=== PATIENT | female | born 1965 | race Caucasian/White ===

== ENCOUNTER → 2017-05-13 | Outpatient (CLI) | payer OTHER ==
[~2017-05-13] MED LIST: ATENOLOL 25 MG25 M1 PO; B12INJ IM; CARDIZEM CD180 MG PO; CARDIZEM CD240 MG PO; DILTIAZEM ER120 M1 PO; LORTAB ELIXIR PO; PROPAFENONE HC225 M1 PO; VITAMIN D 5050000 I1; VITAMIN D 5050000 I1 PO; [UNRECOGNIZED DRUG - OTHER] PO
[2017-05-13 13:08] VITALS: BP 127/75
[2017-05-13 13:10] VITALS: BP 119/80
[2017-05-13 13:14] VITALS: BP 117/88
[2017-05-13 13:17] VITALS: BP 127/94
[2017-05-13 13:19] VITALS: BP 127/94
--- NOTE | 2017-05-13 15:59 | TEE ---
[facility] [address] [place] [address] TRANSESOPHAGEAL ECHOCARDIOGRAM Name: ANDREI SCOTT Room: [facility]#: [id number] Admission: 05/13/17 Attend Phys: Rickie Pugh, Discharge: Date of : 67 Date of Service: 05/13/17 1559 Report #: [id number] THIS REPORT FOR: //name// APPROVED REPORT Study performed: 05/13/2017 13:07:01 EXAM: Transesophageal Echocardiogram Patient Location: Out-Patient Status: routine BSA: 2.11 HR: 104 bpm BP: 127/75 mmHg Rhythm: Atrial Fibrillation Other Information Study Quality: Good Indications Atrial Fibrillation pre- ablation Echo Enhancing Agent Indication: Rule out Shunt Agent(s) / Amount(s) Used: Agitated Saline 10 cc Procedure After obtaining informed consent, patient underwent transesophageal echo in the [employer] [facility] [facility]. Type of Sedation : Conscious Sedation Sedation was administered by Madalyn Sandy RN. Sedation start time: 1305 Case end Time: 1322 Sedation was achieved intravenously with: Versed (4) Fentanyl (100) Transesophageal probe was inserted and advanced into esophagus without difficulty by Rickie Pugh MD, FACC. Echo enhancement indication: R/O Septal defect. Echo enhancement agent administered: Agitated Saline The DAVID was performed without complications. Throughout the procedure, the blood pressure, pulse oximetry, cardiac rhythm, and rate were monitored. The patient tolerated the procedure without adverse effects. Recovery from conscious sedation was uneventful and vital signs were stable. [place] [id number] TRANSESOPHAGEAL ECHOCARDIOGRAM Name: ANDREI SCOTT Room: [facility]#: [id number] Admission: 05/13/17 Attend Phys: Rickie Pugh, Discharge: Date of : 67 Date of Service: 05/13/17 1559 Report #: [id number] Left Ventricle The left ventricle is normal size. There is normal LV segmental wall motion. There is normal left ventricular wall thickness. Left ventricular systolic function is normal. LVEF is 55-60%. Right Ventricle The right ventricle is normal size. The right ventricular systolic function is normal. Atria Left atrium is mildly dilated. No thrombus is visualized in the left atrium or appendage. Interatrial septum is intact without evidence of ASD or PFO. The right atrium size is normal. Aortic Valve The aortic valve is normal in structure. No aortic regurgitation is present. There is no aortic valvular stenosis. Mitral Valve The mitral valve is normal in structure. Trace mitral regurgitation. No evidence of mitral valve stenosis. Tricuspid Valve The tricuspid valve is normal in structure. Trace tricuspid regurgitation. Pulmonic Valve The pulmonary valve is normal in structure. There is no pulmonic valvular regurgitation. Great Vessels The aortic root is normal in size. Pericardium There is no pericardial effusion. <Conclusion> The left ventricle is normal size. There is normal left ventricular wall thickness. Left ventricular systolic function is normal. LVEF is 55-60%. Left atrium is mildly dilated. No thrombus is visualized in the left atrium or appendage. [place] [address] TRANSESOPHAGEAL ECHOCARDIOGRAM Name: ANDREI SCOTT Room: [facility]#: [id number] Admission: 05/13/17 Attend Phys: Rickie Pugh, Discharge: Date of : 67 Date of Service: 05/13/17 1559 Report #: [id number] Trace tricuspid regurgitation. Interatrial septum is intact without evidence of ASD or PFO. <ELECTRONICALLY SIGNED> By: Rickie Pugh MD, FACC 05/13/17 1559 1559 155 Rickie Pugh MD, FACC /INF
== END ==
LOC: M.CL 11:53
DX: I48.91 Unspecified atrial fibrillation (principal)

== ENCOUNTER → 2017-12-26 | Outpatient (CLI) | payer OTHER | LOC: M.LAB 02:50 | DX: Z01.812 Encounter for preprocedural laboratory examination (principal); I48.91 Unspecified atrial fibrillation; M19.90 Unspecified osteoarthritis, unspecified site ==

== ENCOUNTER 2018-11-25 18:38 | Inpatient (IN) | payer OTHER ==
[~2018-11-25] VITALS: Ht 165.1 cm; Wt 116.1 kg
[2018-11-25] MEDS ORDERED: FLECAINIDE ACE150 MG PO (18:48)
[2018-11-25] MEDS ORDERED: ELIQUIS5 MG PO (18:48)
[2018-11-25] MEDS ORDERED: VITAMIN D250000 UNIT PO (18:49)
[2018-11-25] MEDS ORDERED: COSENTYX (150 MG/1 M SUBQ (18:50)
[2018-11-25] MEDS ORDERED: LOPRESSOR50 PO (18:51)
[2018-11-25] MEDS ORDERED: HYDROCHLOROTHIA25 M2 PO (18:51)
[2018-11-25 19:11] LABS: ABSOLUTE BASOPHILS 0.1 thou/uL (0.0-0.2); ABSOLUTE EOSINOPHILS 0.4 thou/uL (0.0-0.7); ABSOLUTE LYMPHOCYTES 2.5 thou/uL (0.8-5.3); ABSOLUTE MONOCYTES 0.7 thou/uL (0.0-1.2); ABSOLUTE NEUTROPHILS 4.2 thou/uL (1.6-8.1); EOSINOPHILS 5.5 %; HEMATOCRIT 38.3 % (37.0-47.0); HEMOGLOBIN 12.7 gm/dL (12.0-15.0); LYMPHOCYTES 31.5 %; MCH 31.9 pg (26.0-34.0); MCHC 33.1 g/dL (28.0-37.0); MCV 96.3 fL (80.0-100.0); MONOCYTES 8.9 %; MPV 6.7 fl. (7.2-11.1); NUCLEATED RBCS 0 /100WBC; PLATELET COUNT* 390 thou/uL (150-400); POLYS 53.1 %; RBC 3.98 mil/uL (4.20-5.00); RDW-CV 12.9 % (10.5-14.5); WBC 7.9 thou/uL (4.0-11.0)
[2018-11-25 19:18] LABS: ANION GAP 6 mmol/L (7-16); BUN 13 mg/dL (7-18); CALCIUM 8.7 mg/dL (8.5-10.1); CHLORIDE 103 mmol/L (98-107); CO2 30 mmol/L (21-32); CREATININE 1.2 mg/dL (0.6-1.3); GLUCOSE 95 mg/dL (70-99); POTASSIUM 3.9 mmol/L (3.5-5.1); SODIUM 139 mmol/L (136-145)
[2018-11-25 19:21] LABS: APTT 26.5 Seconds (25.0-31.3); PROTIME 10.6 Seconds (9.20-11.50)
[2018-11-25 19:29] LABS: ALBUMIN 3.1 g/dL (3.4-5.0); ALKALINE PHOSPHATASE 98 U/L (46-116); NT-PRO BRAIN NAT PEPTIDE 2030 pg/mL (<300); SGOT 11 U/L (15-37); SGPT 25 U/L (30-65); TOTAL BILIRUBIN 0.2 mg/dL (<0.1-1.0); TOTAL PROTEIN 7.4 g/dL (6.4-8.2); TROPONIN-I LEVEL <0.06 ng/mL (<0.06)
[2018-11-25 21:35] VITALS: BP 126/64
[2018-11-25 22:00] VITALS: BP 128/80
[2018-11-26] VITALS (10 sets, daily range): BP systolic 91–119; BP diastolic 48–88
--- NOTE | 2018-11-26 06:17 | NUR ---
PATIENT ARRIVED ON FLOOR FROM ER ABOUT 2144. PATIENT ADMISSION HISTORY AND ASSESSMENT WAS COMPLETED CHARTED. PATIENT COMPLAINING OF PAIN IN THE BACK OF HER LEFT THIGH BUT DENYING THE NEED FOR PAIN MEDICINE. PATIENT HAS BEEN AFIB TO [facility] ON THE MONITOR. WILL CONTINUE TO MONITOR.
--- NOTE | 2018-11-26 10:54 | EKG ---
[place] [address] ELECTROCARDIOGRAM REPORT Name: ANDREI SCOTT Room: [address] IN [facility].#: [id number] Admission: 11/25/18 Attend Phys: Daphne Avalos Discharge: Date of : 67 Report #: [id number] THIS REPORT FOR: //name// [facility] ED Test Date: 2018-11-25 Test Time: 18:47:31 Pat Name: ANDREI SCOTT Department: Room: [facility] Gender: F Business Support Liaison: : 1965 Requested By: Dakotah Arevalo Order Number: [id number] MD: Rickie Pugh Measurements Intervals Emerson Rate: 111 P: CO: QRS: 4 QRSD: 110 T: 68 QT: 347 QTc: 472 Interpretive Statements Atrial fibrillation Baseline wander in lead(s) V6 Compared to ECG 04/25/2014 16:47:11 Sinus rhythm no longer present Electronically Signed On 11-26-2018 10:53:45 CDT by Rickie Pugh [email or web address] <ELECTRONICALLY SIGNED> By: Rickie Pugh MD, FACC 11/26/18 1053 1847 1847 Rickie Pugh MD, [facility] /EPI
--- NOTE | 2018-11-26 16:32 | NUR ---
SW attempted to meet pt earlier today; pt off unit for cardioversion.
--- NOTE | 2018-11-26 17:44 | NUR ---
Patient resting in bed. Patient is up ad micah in room. Patient has continued complaints of left thigh pain, treated with warm blanket. Patient denies need for pain medication. Patient went for cardioversion this afternoon without incident. Patient denies any needs at this time. Call light within reach. Will continue to monitor.
--- NOTE | 2018-11-26 19:29 | EKG ---
[place] [address] ELECTROCARDIOGRAM REPORT Name: ANDREI SCOTT Room: [address] ADM IN .R.#: [id number] Admission: 11/25/18 Attend Phys: Daphne Avalos Discharge: Date of : 67 Report #: [id number] THIS REPORT FOR: //name// [facility] Test Date: 2018-11-26 Test Time: 13:09:10 Pat Name: ANDREI SCOTT Department: Room: [address] Gender: F [employer] Forming Machine Operator: TPARKS : 1965 Requested By: Rickie Pugh Order Number: [id number] Aziza MD: Rickie Pugh Measurements Intervals Sacul Rate: 101 P: MS: QRS: 27 QRSD: 104 T: 45 QT: 358 QTc: 465 Interpretive Statements Atrial flutter with predominant 2:1 AV block Abnormal inferior Q waves ST elevation, consider inferior injury Compared to ECG 11/25/2018 18:47:31 2:1 AV block now present Inferior Q waves now present Q waves now present ST (T wave) deviation now present Myocardial infarct finding now present Atrial fibrillation no longer present Electronically Signed On 11-26-2018 19:28:59 CDT by Rickie Pugh [email or web address] <ELECTRONICALLY SIGNED> By: Rickie Pugh MD, [facility] 11/26/18 1928 1309 1309 Rickie Pugh MD, [facility] /EPI
[2018-11-26] MEDS ORDERED: NEXIUM40 MG PO (20:02)
[2018-11-27] VITALS: BP 97/55
[2018-11-27 04:00] VITALS: BP 94/54
--- NOTE | 2018-11-27 06:54 | NUR ---
Patient progressing towards goals: electronic device monitor continues to trace SR/SB. patient provided with Kpad for left hip pain with relief. Patient anticipating discharge home today. Call light within reach
--- NOTE | 2018-11-27 10:25 | NUR ---
ASSUMED PT CARE AT 0700. RES WAS NOTED TO BE RESTING IN BED A/O X 4. PT WAS WANTING GO HOME. VSS, CARD SR 63 AND DOCUMENTED. PT PLEASANT. CONT TO BE UP AT DONTE, PT DENIES ANY PAIN. PT STATES SHE SLEPT THROUGHT THE NIGHT AND FEELS RESTED. CALL LIGHT IN REACH. WILL CONT TO MONITOR THIS SHIFT.
--- NOTE | 2018-11-27 11:00 | NUR ---
MET WITH PT TO DISCUSS HOME SITUATION/DC PLANNING. PT LIVES WITH SPOUSE, WORKS AND IS INDEPENDENT. DENIES DC NEEDS AND HOPES TO GO HOME TODAY
[2018-11-27] MEDS ORDERED: ERGOCALCIF50000 UNIT PO (12:33)
[2018-11-27 12:40] VITALS: BP 116/48
[2018-11-27 12:47] VITALS: BP 136/85
--- NOTE | 2018-11-27 13:12 | EKG ---
[place] [address] ELECTROCARDIOGRAM REPORT Name: ANDREI SCOTT Room: [address] IN .R.#: [id number] Admission: 11/25/18 Attend Phys: Daphne Avalos Discharge: Date of : 67 Report #: [id number] THIS REPORT FOR: //name// [facility] Test Date: 2018-11-27 Test Time: 10:32:55 Pat Name: ANDREI SCOTT Department: Room: [address] Gender: F Oracle Software Engineer: : 1965 Requested By: Xochitl Kenney Order Number: [id number] Aziza MD: Mando Welsh Measurements Intervals Duncan Rate: 67 P: 66 AK: 194 QRS: 23 QRSD: 102 T: 57 QT: 416 QTc: 439 Interpretive Statements Sinus rhythm Abnormal inferior Q waves Compared to ECG 11/26/2018 13:09:10 Atrial flutter no longer present 2:1 AV block no longer present ST (T wave) deviation no longer present Myocardial infarct finding no longer present Electronically Signed On 11-27-2018 13:12:40 CDT by Mando Welsh [email or web address] <ELECTRONICALLY SIGNED> By: Elliot Welsh MD, [facility] 11/27/18 1312 1032 1032 Elliot Welsh MD, [facility] /EPI
--- NOTE | 2018-11-27 17:31 | CARD ---
[facility] [address] [place] [address] CARDIAC CATH REPORT Name: ANDREI SCOTT Room: [address]#: [id number] Admission: 11/25/18 Attend Phys: Daphne Avalos Discharge: 11/27/18 Date of : 67 Report #: [id number] THIS REPORT FOR: //name// CC: George Bermudez DATE OF SERVICE: 11/26/2018 PROCEDURE: DC cardioversion. INDICATION: Persistent atrial flutter. HISTORY OF PRESENT ILLNESS: The patient is a pleasant 53-year-old white female, who has had ablation for atrial arrhythmias. She has had recurrent atrial flutter at this time. The patient was given amiodarone IV bolus and loaded. The patient underwent DC cardioversion. PROCEDURE DESCRIPTION: After informed consent, the patient was brought to the cardiac holding area. The patient had received a bolus of IV amiodarone. The patient was given 50 mg of fentanyl and 2 mg of IV Versed. This achieved adequate conscious sedation. The patient was then cardioverted with a single biphasic shock of 300 joules to normal sinus rhythm. The patient tolerated the procedure well and without complication. IMPRESSION: 1. Recurrent persistent atrial flutter. 2. Successful direct current cardioversion to normal sinus rhythm after 150 mg bolus of IV amiodarone. <ELECTRONICALLY SIGNED> By: Rickie Pugh MD, FACC 11/27/18 1731 1950 0027Micdelfin Pugh MD, [facility] /nt
== END 2018-11-27 13:16 | disposition home or self-care (01) | DRG 309 ==
LOC: M.ERS 18:38 → M.2W 20:17 → M.TBA-ER 20:17 → M.2W 21:58
PROVIDERS: Family Medicine; ADMIT Internal Medicine
PROC: 5A2204Z Restoration of Cardiac Rhythm, Single (ICD-10-PCS; principal; 2018-11-26)
DX: I48.0 Paroxysmal atrial fibrillation (principal); Z68.41 Body mass index [BMI] 40.0-44.9, adult; I48.92 Unspecified atrial flutter; G47.33 Obstructive sleep apnea (adult) (pediatric); E66.01 Morbid (severe) obesity due to excess calories; M79.605 Pain in left leg; I10 Essential (primary) hypertension; Z79.899 Other long term (current) drug therapy

== ENCOUNTER → 2019-03-10 | Outpatient (CLI) | payer OTHER ==
[~2019-03-10] MED LIST changes: +COSENTYX (150 MG/1 M SUBQ; +ELIQUIS5 MG PO; +ERGOCALCIF50000 UNIT PO; +FLECAINIDE ACE150 MG PO; +HYDROCHLOROTHIA25 M2 PO; +LOPRESSOR50 PO; +NEXIUM40 MG PO; +VITAMIN D250000 UNIT PO
== END ==
LOC: M.MRI 03-05 08:36
DX: Z12.31 Encounter for screening mammogram for malignant neoplasm of breast (principal); S73.192A Other sprain of left hip, initial encounter; M47.26 Other spondylosis with radiculopathy, lumbar region; M51.16 Intervertebral disc disorders with radiculopathy, lumbar region; M12.88 Other specific arthropathies, not elsewhere classified, other specified site; M48.061 Spinal stenosis, lumbar region without neurogenic claudication; M16.0 Bilateral primary osteoarthritis of hip; X58.XXXA Exposure to other specified factors, initial encounter; Y93.89 Activity, other specified; Y92.89 Other specified places as the place of occurrence of the external cause; Y99.8 Other external cause status

== ENCOUNTER → 2019-03-24 | Outpatient (CLI) | payer OTHER ==
[~2019-03-24] MED LIST changes: +AMIODARONE HCL400 MG PO
== END ==
LOC: M.PC 05:18
DX: M16.0 Bilateral primary osteoarthritis of hip (principal); M47.26 Other spondylosis with radiculopathy, lumbar region; Z72.89 Other problems related to lifestyle

== ENCOUNTER → 2019-05-12 | Outpatient (CLI) | payer OTHER ==
[2019-05-12 18:14] LABS: ABSOLUTE EOSINOPHILS 0.2 thou/uL (0.0-0.7); ABSOLUTE LYMPHOCYTES 2.1 thou/uL (0.8-5.3); ABSOLUTE MONOCYTES 0.5 thou/uL (0.0-1.2); ABSOLUTE NEUTROPHILS 2.8 thou/uL (1.6-8.1); BASOPHILS 0.7 %; HEMATOCRIT 37.7 % (37.0-47.0); LYMPHOCYTES 36.9 %; MCH 32.5 pg (26.0-34.0); MCHC 34.3 g/dL (28.0-37.0); MCV 94.7 fL (80.0-100.0); MONOCYTES 9.1 %; MPV 7.5 fl. (7.2-11.1); NUCLEATED RBCS 0 /100WBC; PLATELET COUNT* 316 thou/uL (150-400); POLYS 50.3 %; RBC 3.98 mil/uL (4.20-5.00); RDW-CV 13.4 % (10.5-14.5); WBC 5.6 thou/uL (4.0-11.0)
[2019-05-12 18:29] LABS: ALBUMIN 3.4 g/dL (3.4-5.0); ALKALINE PHOSPHATASE 80 U/L (46-116); ANION GAP 6 mmol/L (7-16); BUN 16 mg/dL (7-18); CALCIUM 8.4 mg/dL (8.5-10.1); CHLORIDE 101 mmol/L (98-107); CHOLESTEROL 248 mg/dL (<200); CO2 32 mmol/L (21-32); GLUCOSE 82 mg/dL (70-99); HDL CHOLESTEROL 64 mg/dL (>40); LDL CHOLESTEROL 166 mg/dL (<100); POTASSIUM 3.8 mmol/L (3.5-5.1); SGOT 18 U/L (15-37); SGPT 22 U/L (30-65); SODIUM 139 mmol/L (136-145); TC:HDL 3.9 Ratio (Not establshd); TOTAL BILIRUBIN 0.2 mg/dL (<0.1-1.0); TOTAL PROTEIN 7.4 g/dL (6.4-8.2); TRIGLYCERIDE 92 mg/dL (<150); VLDL 18 mg/dL (<40)
[2019-05-12 18:33] LABS: SERUM ASSESSMENT Clear
[2019-05-12 19:28] LABS: ESR (SEDRATE) 40 mm/hr (0-30)
== END ==
LOC: M.LAB 15:43
PROVIDERS: Internal Medicine Rheumatology
DX: I10 Essential (primary) hypertension (principal); I25.10 Atherosclerotic heart disease of native coronary artery without angina pectoris; I48.91 Unspecified atrial fibrillation; R53.82 Chronic fatigue, unspecified; L40.50 Arthropathic psoriasis, unspecified; Z68.39 Body mass index [BMI] 39.0-39.9, adult

== ENCOUNTER → 2020-02-16 | Outpatient (CLI) | payer OTHER | LOC: M.RAD 12:58 | PROVIDERS: ATTEND Orthopaedic Surgery | DX: M16.0 Bilateral primary osteoarthritis of hip (principal); I48.91 Unspecified atrial fibrillation; Z79.899 Other long term (current) drug therapy; Z88.8 Allergy status to other drugs, medicaments and biological substances; Z98.890 Other specified postprocedural states ==

== ENCOUNTER → 2020-05-10 | Outpatient (CLI) | payer OTHER ==
[2020-05-10 13:24] LABS: ABSOLUTE BASOPHILS 0.1 thou/uL (0.0-0.2); ABSOLUTE EOSINOPHILS 0.1 thou/uL (0.0-0.7); ABSOLUTE LYMPHOCYTES 2.1 thou/uL (0.8-5.3); ABSOLUTE MONOCYTES 0.5 thou/uL (0.0-1.2); ABSOLUTE NEUTROPHILS 3.6 thou/uL (1.6-8.1); BASOPHILS 0.9 %; EOSINOPHILS 1.7 %; HEMATOCRIT 38.8 % (37.0-47.0); HEMOGLOBIN 12.9 gm/dL (12.0-15.0); LYMPHOCYTES 32.9 %; MCH 31.1 pg (26.0-34.0); MCHC 33.4 g/dL (28.0-37.0); MCV 93.2 fL (80.0-100.0); MONOCYTES 8.6 %; MPV 6.5 fl. (7.2-11.1); NUCLEATED RBCS 0 /100WBC; PLATELET COUNT* 299 thou/uL (150-400); POLYS 55.9 %; RBC 4.16 mil/uL (4.20-5.00); RDW-CV 12.7 % (10.5-14.5); WBC 6.4 thou/uL (4.0-11.0)
[2020-05-10 13:41] LABS: ALBUMIN 3.6 g/dL (3.4-5.0); ALKALINE PHOSPHATASE 86 U/L (46-116); ANION GAP 7 mmol/L (7-16); BUN 14 mg/dL (7-18); CHLORIDE 100 mmol/L (98-107); CHOLESTEROL 228 mg/dL (<200); CO2 30 mmol/L (21-32); CREATININE 0.9 mg/dL (0.6-1.3); GLUCOSE 87 mg/dL (70-99); HDL CHOLESTEROL 69 mg/dL (>40); LDL CHOLESTEROL 145 mg/dL (<100); POTASSIUM 3.4 mmol/L (3.5-5.1); SGOT 15 U/L (15-37); SGPT 25 U/L (30-65); SODIUM 137 mmol/L (136-145); TC:HDL 3.3 Ratio (Not establshd); TOTAL BILIRUBIN 0.4 mg/dL (<0.1-1.0); TOTAL PROTEIN 7.7 g/dL (6.4-8.2); TRIGLYCERIDE 70 mg/dL (<150); VLDL 14 mg/dL (<40)
[2020-05-10 13:46] LABS: SERUM ASSESSMENT Clear
[2020-05-10 14:34] LABS: ESR (SEDRATE) 33 mm/hr (0-30)
== END ==
LOC: M.MRI 13:06
PROVIDERS: ATTEND Family Medicine
DX: Z12.31 Encounter for screening mammogram for malignant neoplasm of breast (principal); M19.012 Primary osteoarthritis, left shoulder; M75.82 Other shoulder lesions, left shoulder; G89.29 Other chronic pain; I10 Essential (primary) hypertension; I25.10 Atherosclerotic heart disease of native coronary artery without angina pectoris; I48.91 Unspecified atrial fibrillation; R53.82 Chronic fatigue, unspecified; M06.9 Rheumatoid arthritis, unspecified; R79.89 Other specified abnormal findings of blood chemistry; M25.712 Osteophyte, left shoulder; Z68.39 Body mass index [BMI] 39.0-39.9, adult

== ENCOUNTER → 2020-06-18 | Outpatient (CLI) | payer OTHER | LOC: M.LAB 12:00 | PROVIDERS: ATTEND Family Medicine | DX: R79.89 Other specified abnormal findings of blood chemistry (principal); Z79.899 Other long term (current) drug therapy ==

== ENCOUNTER → 2020-07-17 | Outpatient (CLI) | payer OTHER | LOC: M.LAB 07:36 | PROVIDERS: ATTEND Family Medicine | DX: R79.89 Other specified abnormal findings of blood chemistry (principal) ==

== ENCOUNTER → 2020-08-15 | Outpatient (CLI) | payer OTHER | END | disposition home or self-care (01) | LOC: M.RAD 08:47 | PROVIDERS: ATTEND Family Medicine | DX: M25.551 Pain in right hip (principal); M25.552 Pain in left hip; I48.91 Unspecified atrial fibrillation; Z79.899 Other long term (current) drug therapy; Z79.01 Long term (current) use of anticoagulants ==

== ENCOUNTER → 2020-09-28 | Outpatient (CLI) | payer OTHER ==
[2020-09-28 08:39] LABS: ABSOLUTE EOSINOPHILS 0.1 thou/uL (0.0-0.7); ABSOLUTE LYMPHOCYTES 1.3 thou/uL (0.8-5.3); ABSOLUTE MONOCYTES 0.4 thou/uL (0.0-1.2); ABSOLUTE NEUTROPHILS 2.7 thou/uL (1.6-8.1); BASOPHILS 0.8 %; EOSINOPHILS 2.5 %; HEMATOCRIT 36.6 % (37.0-47.0); HEMOGLOBIN 12.4 gm/dL (12.0-15.0); LYMPHOCYTES 28.9 %; MCH 31.7 pg (26.0-34.0); MCV 93.1 fL (80.0-100.0); MONOCYTES 9.6 %; MPV 6.2 fl. (7.2-11.1); NUCLEATED RBCS 0 /100WBC; PLATELET COUNT* 323 thou/uL (150-400); POLYS 58.2 %; RBC 3.93 mil/uL (4.20-5.00); RDW-CV 13.4 % (10.5-14.5); WBC 4.6 thou/uL (4.0-11.0)
[2020-09-28 08:50] LABS: APTT 27.5 Seconds (25.0-31.3)
[2020-09-28 08:53] LABS: ALBUMIN 3.5 g/dL (3.4-5.0); CREATININE 0.7 mg/dL (0.6-1.3); POTASSIUM 4.1 mmol/L (3.5-5.1); TOTAL BILIRUBIN 0.5 mg/dL (<0.1-1.0); TOTAL PROTEIN 7.6 g/dL (6.4-8.2)
[2020-09-28 10:13] LABS: ESR (SEDRATE) 50 mm/hr (0-30)
[2020-09-29 02:06] LABS: GLYCOHEMOGLOBIN (HGB A1C) 5.3 % (4.8-5.6)
== END ==
LOC: M.LAB 09-26 10:47
PROVIDERS: ATTEND Orthopaedic Surgery
DX: Z01.812 Encounter for preprocedural laboratory examination (principal); M16.12 Unilateral primary osteoarthritis, left hip

== ENCOUNTER 2020-10-02 08:44 | Observation (INO) | payer OTHER ==
[~2020-10-02] VITALS: Ht 165.1 cm; Wt 113.4 kg
[2020-10-02 09:47] VITALS: BP 126/76
--- NOTE | 2020-10-02 15:37 | OP ---
[address] [address] OPERATIVE REPORT Name: ANDREI SCOTT Room: [address] [place]#: [id number] Admission: 10/02/20 Attend Phys: Daphne Avalos Discharge: Date of : 67 Report #: [id number] THIS REPORT FOR: cc: Jodi Callahan Maggie M. DO Paul, Robert F. DO ~ DOC #: [id number] Duong Mcfarlane DO DATE OF SURGERY: 10/02/2020 PREOPERATIVE DIAGNOSIS: Left hip degenerative joint disease. POSTOPERATIVE DIAGNOSIS: Left hip degenerative joint disease. PROCEDURE PERFORMED: Left total hip arthroplasty utilizing Biomet Taperloc system with the following components: 1. Size 54 finned G7 acetabular shell. 2. Size 36 mm high wall liner. 3. Size 5 Taperloc Microplasty stem, standard offset. 4. A 36 mm ceramic head with a -3 neck length. 5. A 6.5 mm bone screw lengths 15 and 25. SURGEON: Duong Mcfarlane DO. ASSISTANTS: Criselda Anaya PA-C; Emiliano Palafox DO. ANESTHESIA: General. ESTIMATED BLOOD LOSS: 400 mL SPECIMENS: None. COMPLICATIONS: None. DISPOSITION: Stable to PACU. ANTIBIOTICS: 2 grams IV Ancef preop. INDICATIONS: The patient is a 55-year-old female ____ for quite some time regarding left hip pain. On imaging, she has advanced DJD. She tried and failed conservative measures. She continues to have pain on a daily basis that interferes with her ADLs. Therefore, I recommended she undergo hip arthroplasty. DESCRIPTION OF PROCEDURE: The patient was seen in the preoperative area. Written consent was obtained. The operative site was [place] [address] OPERATIVE REPORT Name: ANDREI SCOTT Room: [address] [place]#: [id number] Admission: 10/02/20 Attend Phys: Daphne Avalos Discharge: Date of : 67 Report #: [id number] brought back to the operative suite, given benefit of general anesthetic. She was placed on a well-padded Hilbert table with a well-padded perineal post. The leg was placed in the boot and subsequently in the spar. Left lower extremity was then prepped and draped in normal sterile fashion. A surgical timeout was performed. Correct site, side, and procedure were verified. Everyone was present was in agreement. The procedure began with a standard anterior incision. Sharp dissection through the skin. We used Bovie to dissect through subcutaneous fat. We identified the fascial layer. We made an incision through the fascia in line with our skin incision. We identified the appropriate interval. Retractors were placed appropriately around the proximal femur. We pretreated the capsule with the Aquamantys and then performed a standard anterior capsulectomy. Our femoral neck cut was made approximately 1 cm proximal to the lesser trochanter. A napkin ring cut was created. The bone was removed. We placed the retractors appropriately on the acetabulum. The remaining capsule as well as labrum was removed. We subsequently reamed up to a 53 under fluoroscopy. We then opened and impacted the size 54 acetabular shell using fluoroscopy to confirm the appropriate position. We then drilled, measured and inserted the appropriate length screws. The liner was placed to the high wall in the anterior superior position. We then turned our attention to the femur, which was maximally externally rotated. We started with the box osteotome followed by the rattail rasp and sequentially broached up to a size 5. We trialled a -3 neck length. The hip was reduced. We took x-rays, which confirmed the appropriate size of the stem. The hip was then dislocated. We opened and impacted the size 5 stem, which sat in a similar position. We therefore opened and inserted the -3 neck length. Final reduction was performed. Images were obtained and saved to the PACS system. The hip was thoroughly irrigated. The fascial layer was closed with #1 Stratafix running fashion. Subcutaneous tissue was closed with 2-0 Vicryl in simple inverted interrupted fashion. Skin was reapproximated with a running 3-0 Stratafix. Dermabond, skin glue followed by sterile Mepilex were applied. The patient was awoken from anesthesia and transferred back to PACU in stable condition. There were no obvious complications. Needle, sponge counts correct x 2. Dr. Mcfarlane was present for all critical aspects of the case. Duong Mcfarlane DO RFP/VIS <ELECTRONICALLY SIGNED> By: Duong Mcfarlane DO 10/02/20 1537 1132 [email or web address] Mcfarlane DO /dariela
[2020-10-02 20:00] VITALS: BP 109/46
[2020-10-03 03:46] LABS: HEMATOCRIT 29.5 % (37.0-47.0)
[2020-10-03 04:22] VITALS: BP 126/47
[2020-10-03 08:00] VITALS: BP 121/43
[2020-10-03] MEDS ORDERED: ZOFRAN4 MG PO (10:19)
[2020-10-03 11:28] VITALS: BP 121/43
[2020-10-03 11:32] VITALS: BP 121/43
[2020-10-03] MEDS ORDERED: METAMUCIL PACK3.4 GM PO (11:39)
[2020-10-03] MEDS ORDERED: COLACE 100 MG100 MG PO (11:39)
[2020-10-03 12:24] VITALS: BP 121/43
[2020-10-03 14:59] VITALS: BP 121/43
== END 2020-10-03 13:00 | disposition home or self-care (01) ==
LOC: M.ORTHSURG 08:44 → M.TBA 08:44 → M.ORTHSURG 11:57
PROVIDERS: Orthopaedic Surgery; ADMIT Internal Medicine; ATTEND Internal Medicine
DX: M16.12 Unilateral primary osteoarthritis, left hip (principal); E66.01 Morbid (severe) obesity due to excess calories; I48.91 Unspecified atrial fibrillation; I10 Essential (primary) hypertension; D68.9 Coagulation defect, unspecified; Z79.899 Other long term (current) drug therapy; Z79.01 Long term (current) use of anticoagulants

== ENCOUNTER → 2020-11-07 | Outpatient (CLI) | payer OTHER ==
[~2020-11-07] MED LIST changes: +COLACE 100 MG100 MG PO; +METAMUCIL PACK3.4 GM PO; +ZOFRAN4 MG PO
== END ==
LOC: M.WC 07:39
PROVIDERS: ATTEND Emergency Medicine Undersea and Hyperbaric Medicine
DX: T81.89XA Other complications of procedures, not elsewhere classified, initial encounter (principal); I83.90 Asymptomatic varicose veins of unspecified lower extremity; M19.90 Unspecified osteoarthritis, unspecified site; Z90.710 Acquired absence of both cervix and uterus; Z90.49 Acquired absence of other specified parts of digestive tract; Z96.642 Presence of left artificial hip joint; Y92.238 Other place in hospital as the place of occurrence of the external cause; Y83.8 Other surgical procedures as the cause of abnormal reaction of the patient, or of later complication, without mention of misadventure at the time of the procedure

== ENCOUNTER → 2020-11-14 | Outpatient (CLI) | payer OTHER | LOC: M.WC 07:35 | PROVIDERS: ATTEND Emergency Medicine Undersea and Hyperbaric Medicine | DX: T81.89XD Other complications of procedures, not elsewhere classified, subsequent encounter (principal); I83.90 Asymptomatic varicose veins of unspecified lower extremity; M19.90 Unspecified osteoarthritis, unspecified site; Z90.710 Acquired absence of both cervix and uterus; Z90.49 Acquired absence of other specified parts of digestive tract; Z96.642 Presence of left artificial hip joint; Y83.8 Other surgical procedures as the cause of abnormal reaction of the patient, or of later complication, without mention of misadventure at the time of the procedure ==

== ENCOUNTER → 2020-11-21 | Outpatient (CLI) | payer OTHER | LOC: M.WC 07:44 | PROVIDERS: ATTEND Emergency Medicine Undersea and Hyperbaric Medicine | DX: T81.89XD Other complications of procedures, not elsewhere classified, subsequent encounter (principal); I83.90 Asymptomatic varicose veins of unspecified lower extremity; M19.90 Unspecified osteoarthritis, unspecified site; Z90.710 Acquired absence of both cervix and uterus; Z90.49 Acquired absence of other specified parts of digestive tract; Z96.642 Presence of left artificial hip joint; Y83.8 Other surgical procedures as the cause of abnormal reaction of the patient, or of later complication, without mention of misadventure at the time of the procedure ==

== ENCOUNTER → 2020-11-28 | Outpatient (CLI) | payer OTHER | LOC: M.WC 07:44 | PROVIDERS: ATTEND Emergency Medicine Undersea and Hyperbaric Medicine | DX: T81.89XD Other complications of procedures, not elsewhere classified, subsequent encounter (principal); I83.90 Asymptomatic varicose veins of unspecified lower extremity; M19.90 Unspecified osteoarthritis, unspecified site; Z90.710 Acquired absence of both cervix and uterus; Z90.49 Acquired absence of other specified parts of digestive tract; Z96.642 Presence of left artificial hip joint; Y83.8 Other surgical procedures as the cause of abnormal reaction of the patient, or of later complication, without mention of misadventure at the time of the procedure ==

== ENCOUNTER → 2020-12-05 | Outpatient (CLI) | payer OTHER | LOC: M.WC 07:35 | PROVIDERS: ATTEND Emergency Medicine Undersea and Hyperbaric Medicine | DX: T81.89XD Other complications of procedures, not elsewhere classified, subsequent encounter (principal); S71.002D Unspecified open wound, left hip, subsequent encounter; R21 Rash and other nonspecific skin eruption; M19.90 Unspecified osteoarthritis, unspecified site; I83.90 Asymptomatic varicose veins of unspecified lower extremity; Z79.01 Long term (current) use of anticoagulants; Z79.899 Other long term (current) drug therapy; X58.XXXD Exposure to other specified factors, subsequent encounter; Y83.8 Other surgical procedures as the cause of abnormal reaction of the patient, or of later complication, without mention of misadventure at the time of the procedure ==

== ENCOUNTER → 2020-12-19 | Outpatient (CLI) | payer OTHER | LOC: M.WC 07:33 | PROVIDERS: ATTEND Family Medicine | DX: T81.89XD Other complications of procedures, not elsewhere classified, subsequent encounter (principal); R21 Rash and other nonspecific skin eruption; M19.90 Unspecified osteoarthritis, unspecified site; I83.90 Asymptomatic varicose veins of unspecified lower extremity; Z79.01 Long term (current) use of anticoagulants; Z96.642 Presence of left artificial hip joint; Y83.8 Other surgical procedures as the cause of abnormal reaction of the patient, or of later complication, without mention of misadventure at the time of the procedure ==

== ENCOUNTER → 2021-01-02 | Outpatient (CLI) | payer OTHER | LOC: M.WC 07:46 | PROVIDERS: ATTEND Emergency Medicine Undersea and Hyperbaric Medicine | DX: T81.89XD Other complications of procedures, not elsewhere classified, subsequent encounter (principal); R21 Rash and other nonspecific skin eruption; M19.90 Unspecified osteoarthritis, unspecified site; I83.90 Asymptomatic varicose veins of unspecified lower extremity; Z79.01 Long term (current) use of anticoagulants; Z96.642 Presence of left artificial hip joint; Y83.8 Other surgical procedures as the cause of abnormal reaction of the patient, or of later complication, without mention of misadventure at the time of the procedure ==

== ENCOUNTER → 2021-01-16 | Outpatient (CLI) | payer OTHER | LOC: M.WC 07:41 | PROVIDERS: ATTEND Emergency Medicine Undersea and Hyperbaric Medicine | DX: T81.89XD Other complications of procedures, not elsewhere classified, subsequent encounter (principal); R21 Rash and other nonspecific skin eruption; M19.90 Unspecified osteoarthritis, unspecified site; I83.90 Asymptomatic varicose veins of unspecified lower extremity; Z79.01 Long term (current) use of anticoagulants; Z96.642 Presence of left artificial hip joint; Y83.8 Other surgical procedures as the cause of abnormal reaction of the patient, or of later complication, without mention of misadventure at the time of the procedure ==

== ENCOUNTER → 2021-01-30 | Outpatient (CLI) | payer OTHER ==
[2021-01-30 08:43] LABS: ABSOLUTE BASOPHILS 0.1 thou/uL (0.0-0.2); ABSOLUTE EOSINOPHILS 0.2 thou/uL (0.0-0.7); ABSOLUTE LYMPHOCYTES 1.5 thou/uL (0.8-5.3); ABSOLUTE MONOCYTES 0.5 thou/uL (0.0-1.2); BASOPHILS 1.3 %; EOSINOPHILS 4.8 %; HEMATOCRIT 34.7 % (37.0-47.0); HEMOGLOBIN 11.6 gm/dL (12.0-15.0); LYMPHOCYTES 36.3 %; MCH 29.5 pg (26.0-34.0); MCHC 33.4 g/dL (28.0-37.0); MCV 88.3 fL (80.0-100.0); MONOCYTES 11.1 %; MPV 6.5 fl. (7.2-11.1); NUCLEATED RBCS 0 /100WBC; PLATELET COUNT* 295 thou/uL (150-400); POLYS 46.5 %; RBC 3.93 mil/uL (4.20-5.00); RDW-CV 14.5 % (10.5-14.5); WBC 4.3 thou/uL (4.0-11.0)
[2021-01-30 08:56] LABS: ALBUMIN 3.3 g/dL (3.4-5.0); ALKALINE PHOSPHATASE 107 U/L (46-116); ANION GAP 7 mmol/L (7-16); BUN 18 mg/dL (7-18); CALCIUM 8.9 mg/dL (8.5-10.1); CHLORIDE 103 mmol/L (98-107); CHOLESTEROL 231 mg/dL (<200); CO2 31 mmol/L (21-32); CREATININE 0.9 mg/dL (0.6-1.3); GLUCOSE 88 mg/dL (70-99); HDL CHOLESTEROL 66 mg/dL (>40); LDL CHOLESTEROL 151 mg/dL (<100); POTASSIUM 4.6 mmol/L (3.5-5.1); SERUM ASSESSMENT Clear; SGOT 15 U/L (15-37); SGPT 19 U/L (30-65); SODIUM 141 mmol/L (136-145); TC:HDL 3.5 Ratio (Not establshd); TOTAL BILIRUBIN 0.4 mg/dL (<0.1-1.0); TOTAL PROTEIN 7.3 g/dL (6.4-8.2); TRIGLYCERIDE 73 mg/dL (<150); VLDL 15 mg/dL (<40)
[2021-01-30 11:07] LABS: ESR (SEDRATE) 35 mm/hr (0-30)
== END ==
LOC: M.LAB 07:28 → M.WC 07:28
PROVIDERS: ATTEND Emergency Medicine Undersea and Hyperbaric Medicine
DX: T81.89XD Other complications of procedures, not elsewhere classified, subsequent encounter (principal); R21 Rash and other nonspecific skin eruption; M19.90 Unspecified osteoarthritis, unspecified site; I83.90 Asymptomatic varicose veins of unspecified lower extremity; R63.5 Abnormal weight gain; E66.3 Overweight; Z79.01 Long term (current) use of anticoagulants; Z96.642 Presence of left artificial hip joint; Y83.8 Other surgical procedures as the cause of abnormal reaction of the patient, or of later complication, without mention of misadventure at the time of the procedure

== ENCOUNTER → 2021-04-04 | Outpatient (CLI) | payer OTHER | LOC: M.MRI 12:52 | PROVIDERS: ATTEND Family Medicine | DX: M17.12 Unilateral primary osteoarthritis, left knee (principal); G89.29 Other chronic pain ==